=== PATIENT | female | born 1975 | race Hispanic/Latino ===

== ENCOUNTER 2021-08-05 11:31 | Emergency (ER) | payer BC ==
[2021-08-05] MEDS ORDERED: NA CHLORIDE 0.9% 1,000 ML ONE (13:09)
[2021-08-05] MEDS ORDERED: FOLIC ACID 5 MG/ML VIAL ONE (13:10)
[2021-08-05 13:15] LABS: Absolute Lymphocytes (CBC) 1.7 K/uL (0.7-4.9); Lymphocytes % 30.9 % (15.3-44.8); MPV 7.1 fL (7.6-11.3)
[2021-08-05 13:23] LABS: Potassium 3.9 mmol/L (3.5-5.1); Troponin High Sensitivity 3.8 pg/mL (<58.9)
--- NOTE | 2021-08-05 13:43 | RAD REPORT ---
EXAM DESCRIPTION: RAD - Chest Single View - 08/05/2021 1:23 pm CLINICAL HISTORY: r/o pneumonia COMPARISON: CHEST PA AND LAT 2 VIEW dated 05/04/2013; CHEST PA AND LAT 2 VIEW dated 01/05/2012 FINDINGS: Lines: None. Lungs: No evidence of edema or pneumonia. Pleural: No significant pleural effusions or pneumothorax. Cardiac: The heart size is within normal limits. Bones: No acute fractures. Other: IMPRESSION: No acute cardiopulmonary disease.
--- NOTE | 2021-08-05 14:13 | RAD REPORT ---
EXAM DESCRIPTION: CT - Ct Stroke Brain Wo Cont - 08/05/2021 2:01 pm CLINICAL HISTORY: Headache COMPARISON: Head angio dated 08/05/2021 TECHNIQUE: All CT scans are performed using dose optimization technique as appropriate and may inclu de automated exposure control or mA/KV adjustment according to patient size. FINDINGS: No intracranial hemorrhage, hydrocephalus or extra-axial fluid collection.No areas of brai n edema or evidence of midline shift. The paranasal sinuses and mastoids are clear. The calvarium is intact. IMPRESSION: No acute intracranial abnormality. Conveyed to Dr. Gutierrez by Dr. Cameron at 1406 on 08/05/21
--- NOTE | 2021-08-05 14:16 | RAD REPORT ---
EXAM DESCRIPTION: CT - Neck Angio - 08/05/2021 2:01 pm CLINICAL HISTORY: Headache COMPARISON: No comparisons TECHNIQUE: CT angiography of the neck vessels was performed with MIPs. All CT scans are performed using dose optimization technique as appropriate and may include automated exposure control or mA/KV adjustment according to patient size. FINDINGS: A left aortic arch is identified with normal three vessel configuration of the great vesse ls. No significant flow abnormality is seen of the common carotid bilaterally. No significant stenosis is identified involving the cervical segments of both internal carotid arteri es. Normal flow is seen within both vertebral arteries. 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 IMPRESSION: No significant flow abnormality of the neck vessels is identified.
--- NOTE | 2021-08-05 14:18 | RAD REPORT ---
EXAM DESCRIPTION: CT - Head angio - 08/05/2021 2:01 pm CLINICAL HISTORY: Headache COMPARISON: No comparisons TECHNIQUE: CT angiography of the head was performed with MIPs. All CT scans are performed using dose optimization technique as appropriate and may include automated exposure control or mA/KV adjustment according to patient size. FINDINGS: Anterior circulation: No aneurysm or large vessel occlusion. No hemodynamically significant stenosis. No arteriovenous malf ormation identified. Posterior circulation: No aneurysm or large vessel occlusion. No hemodynamically significant stenosis. No arteriovenous malf ormation identified. 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 IMPRESSION: No significant flow abnormality is detected.
[2021-08-05] MEDS ORDERED: ASPIRIN 81 MG CHEWABLE TABLET ONE (15:07)
--- NOTE | 2021-08-05 15:25 | RAD REPORT ---
EXAM DESCRIPTION: MRI - Brain Wo Cont - 08/05/2021 3:12 pm CLINICAL HISTORY: Headache COMPARISON: No comparisons TECHNIQUE: Sagittal T1-weighted images were obtained along with PD/heavily T2-weighted and T2-FLAIR images. Axial DWI and ADC mapping sequences were also obtained along with coronal heavily T2-weighted images were obtained. FINDINGS: No intracranial hemorrhage, mass or acute infarction. There is no edema or shift of midlin e structures. No extra-axial fluid collections. Signal voids are seen as a normal finding in the luis r intracranial vessels. No significant white matter disease. Mucous retention cyst left maxillary sinus. IMPRESSION: No acute intracranial abnormality. Specifically, no evidence of acute infarct.
--- NOTE | 2021-08-05 15:30 | ER ---
Nurse's Notes [facility] Name: Amanda Wen Age: 45 yrs Sex: Female : 1975 Arrival Date: 08/05/2021 Time: 11:32 Bed 18 Private MD: Mike Gayle V Diagnosis: Weakness;Headache-blurry vision Presentation: 08/05 11:39 Chief complaint: Patient states: Headache began Wednesday08/03/21, and stated 'unable to vg1 focus today like Im seeing spots'. Denies NV, stated woke up this morning and upper left arm was tingling that "lasted for about five minutes; i think bc i was sleeping on it'. Coronavirus screen: Vaccine status: Patient reports receiving the 2nd dose of the covid vaccine. Client denies travel out of the [place] in the last 14 days. Ebola Screen: Patient denies exposure to infectious person. Patient denies travel to an Ebola-affected area in the 21 days before illness onset. Initial Sepsis Screen: Does the patient meet any 2 criteria? No. Patient's initial sepsis screen is negative. Does the patient have a suspected source of infection? No. Patient's initial sepsis screen is negative. Risk Assessment: Do you want to hurt yourself or someone else? Patient reports no desire to harm self or others. Onset of symptoms was August 03, 2021. 11:39 Method Of Arrival: Ambulatory vg1 11:39 Acuity: STEPHAN 3 vg1 Triage Assessment: 11:41 Headache History: The patient has had previous headaches and this one is different than vg1 previous episodes, and this one is more severe than previous episodes. General: Appears uncomfortable, Behavior is calm, cooperative. Pain: Complains of pain in head Pain currently is 5 out of 10 on a pain scale. Pain began 2-3 days ago. Also complains of no other associated symptoms. Neuro: Level of Consciousness is awake, alert, obeys commands, Oriented to person, place, time, situation, Post Doctoral Fellow are equal bilaterally Moves all extremities. Gait is steady, Speech is normal, Facial symmetry appears normal. BUILD MASTER: 11:41 LMP N/A - Depo vg1 Historical: - Allergies: 11:41 No Known Allergies; vg1 - Home Meds: 11:41 Methotrexate Sodium Oral [Active]; vg1 - PMHx: 11:41 Rheumatoid arthritis; vg1 - PSHx: 11:41 Gastric bypass; Right knee; Cholecystectomy; Left knee; Tummy Tuck; vg1 - Immunization history:: Client reports receiving the 2nd dose of the Covid vaccine. - Social history:: Smoking status: Patient denies any tobacco usage or history of. - Family history:: not pertinent. Screenin:38 Abuse screen: Denies threats or abuse. Denies injuries from another. Nutritional bowman screening: No deficits noted. Tuberculosis screening: No symptoms or risk factors identified. Fall Risk None identified. Assessment: 13:38 Pain: Complains of pain in headaches. Neuro: Level of Consciousness is awake, alert, bowman obeys commands, Oriented to person, place, time, situation. EENT: Reports blurred vision. Musculoskeletal: Reports weakness in right arm and left arm pain in right arm and left arm. Vital Signs: 11:39 BP 154 / 86; Pulse 70; Resp 16; Temp 99.3(TE); Pulse Ox 100% ; Weight 99.79 kg; Height vg1 5 ft. 6 in. (167.64 cm); Pain 5/10; 13:37 BP 120 / 78; Pulse 63; Resp 17; Pulse Ox 100% on R/A; bowman 11:39 Body Mass Index 35.51 (99.79 kg, 167.64 cm) vg1 Phil Coma Score: 14:30 Eye Response: spontaneous(4). Verbal Response: oriented(5). Motor Response: obeys italia commands(6). Total: 15. NIH Stroke Scale Scores: 13:38 NIHSS Score: 0 bowman ED Course: 11:32 Patient arrived in ED. am2 11:33 Mike Gayle MD is Private Physician. am2 11:41 Triage completed. vg1 11:41 Arm band placed on. vg1 11:46 Ada Pardo, PAPO is Primary Nurse. bowman 12:04 Brian Gutierrez MD is Attending Physician. italia 13:25 XRAY Chest (1 view) In Process Unspecified. EDMS 13:38 Patient has correct armband on for positive identification. Placed in gown. Bed in low bowman position. 13:38 No provider procedures requiring assistance completed. Inserted saline lock: 20 gauge bowman in right antecubital area, using aseptic technique. 14:04 CT Stroke Brain w/o Contrast In Process Unspecified. EDMS 14:04 CT Head Angio In Process Unspecified. EDMS 14:[address] In Process Unspecified. EDMS 15:14 Brain Wo Cont In Process Unspecified. EDMS 15:28 Mike Gayle MD is Referral Physician. italia 15:28 Emir Munoz MD is Referral Physician. italia 16:11 IV discontinued, intact, Pressure dressing applied. bowman Administered Medications: 13:07 Drug: foLIC Acid 1 mg Route: IVPB; Site: right antecubital; bowman 13:07 Drug: NS 0.9% 1000 ml Route: IV; Rate: 1 bolus; Site: right antecubital; bowman 15:07 Drug: Aspirin Chewable Tablet 324 mg Route: PO; bowman Medication: 13:38 VIS not applicable for this client. bowman Outcome: 15:29 Discharge ordered by . italia 16:11 Discharged to home ambulatory. bowman 16:11 Condition: good 16:11 Discharge instructions given to patient, Prescriptions given X 1. 16:12 Patient left the ED. NIH Stroke Scale - NIH Stroke Score Date: 08/05/2021 Time: 13:38 Total Score = 0 1a. Level of Consciousness (LOC) - 0(Alert) 1b. Level of Consciousness (LOC) (Month \\T\\ Age) - 0(Both) 1c. LOC Commands (Open \\T\\ Closes Eyes/Sign Maintenance) - 0(Both) 2. Best Gaze (Lateral Gaze Paresis) - 0(Normal) 3. Visual Field Loss - 0(No visual loss) 4. Facial Palsy - 0(Normal) 5a. Left Arm: Motor (10-second hold) - 0(No drift) 5b. Right Arm: Motor (10-second hold) - 0(No drift) 6a. Left Leg: Motor (5-second hold - always test supine) - 0(No drift) 6b. Right Leg: Motor (5-second hold - always test supine) - 0(No drift) 7. Limb Ataxia (finger/nose \\T\\ heel/bay - test with eyes open) - 0(Absent) 8. Sensory Loss (pinprick arms/legs/face) - 0(Normal) 9. Best Language: Aphasia (description/naming/reading) - 0(No aphasia) 10. Dysarthria (speech clarity - read or repeat words) - 0(Normal) 11. Extinction and Inattention (visual/tactile/auditory/spatial/personal) - 0(No abnormality) Initials: bowman Signatures: Dispatcher [employer] Brian Michael MD MD cha Moreno, Amanda am2 Garcia, Victoria RN RN vg1 Au-StagerAda RN RN bowman
--- NOTE | 2021-08-05 15:30 | EDPHYS ---
Physician Documentation [facility] Name: Amanda Wen Age: 45 yrs Sex: Female : 1975 Arrival Date: 08/05/2021 Time: 11:32 Bed 18 Private MD: Mike Gayle V ED Physician Brian Gutierrez HPI: 08/05 13:37 This 45 yrs old Female presents to ER via Ambulatory with complaints of italia Headache, Arm Pain, Vision Problem - blurry. 13:37 The patient complains of pain to the top of head and forehead. The patient describes italia the headache as aching. 13:38 seeing spots , floaters this am. Onset: The symptoms/episode began/occurred this italia morning. Duration: the symptoms are intermittent. Aggravated by nothing. Alleviated by nothing. Associated signs and symptoms: Pertinent positives: headache. 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 - Social history:: Smoking status: Patient denies any tobacco usage or history of. - Family history:: not pertinent. ROS: 13:38 Constitutional: Negative for fever, chills, and weight loss, Eyes: Negative for injury, italia pain, redness, and discharge, ENT: Negative for injury, pain, and discharge, Neck: Negative for injury, pain, and swelling, Cardiovascular: Negative for chest pain, palpitations, and edema, Respiratory: Negative for shortness of breath, cough, wheezing, and pleuritic chest pain, Abdomen/GI: Negative for abdominal pain, nausea, vomiting, diarrhea, and constipation, Back: Negative for injury and pain, : Negative for injury, bleeding, discharge, and swelling, MS/Extremity: Negative for injury and deformity, Skin: Negative for injury, rash, and discoloration, Neuro: Negative for headache, weakness, numbness, tingling, and seizure, Psych: Negative for depression, anxiety, suicide ideation, homicidal ideation, and hallucinations, Allergy/Immunology: Negative for hives, rash, and allergies, Endocrine: Negative for neck swelling, polydipsia, polyuria, polyphagia, and marked weight changes, Hematologic/Lymphatic: Negative for swollen nodes, abnormal bleeding, and unusual bruising. Exam: 13:13 ECG was reviewed by the Attending Physician. [facility] Vital Signs: 11:39 BP 154 / 86; Pulse 70; Resp 16; Temp 99.3(TE); Pulse Ox 100% ; Weight 99.79 kg; Height vg1 5 ft. 6 in. (167.64 cm); Pain 5/10; 13:37 BP 120 / 78; Pulse 63; Resp 17; Pulse Ox 100% on R/A; bowman 11:39 Body Mass Index 35.51 (99.79 kg, 167.64 cm) vg1 NIH Stroke Scale Scores: 13:38 NIHSS Score: 0 bowman [place] Coma Score: 14:30 Eye Response: spontaneous(4). Verbal Response: oriented(5). Motor Response: obeys [facility] commands(6). Total: 15. MDM: 12:04 Patient medically screened. italia 14:30 Differential diagnosis: cerebral vascular accident, hypertensive headache, italia hypoglycemia, hyponatremia, migraine, neoplasm, sinusitis, vasomotor headache. Data reviewed: vital signs, nurses notes, lab test result(s), EKG, radiologic studies, CT scan, MRI. Data interpreted: secured entrance monitor: rate is 63 beats/min, rhythm is regular, Pulse oximetry: on room air is 100 %. Test interpretation: by ED physician or midlevel provider: ECG, plain radiologic studies. Counseling: I had a detailed discussion with the patient and/or guardian regarding: the historical points, exam findings, and any diagnostic results supporting the discharge/admit diagnosis, lab results, radiology results, the need for outpatient follow up, for definitive care, a family practitioner, a neurologist. 08/05 12:29 Order name: Basic Metabolic Panel; Complete Time: 13:37 bd 08/05 12:29 Order name: CBC with Diff; Complete Time: 13:37 bd 08/05 12:29 Order name: CT Stroke Brain w/o Contrast; Complete Time: 14:27 bd 08/05 12:29 Order name: Troponin HS; Complete Time: 13:37 bd 08/05 12:29 Order name: XRAY Chest (1 view); Complete Time: 13:51 bd 08/05 12:29 Order name: EKG; Complete Time: 12:30 bd 08/05 12:29 Order name: CT Head Angio; Complete Time: 14:27 bd 08/05 12:29 Order name: Neck Angio CT; Complete Time: 14:27 bd 08/05 13:43 Order name: Brain Wo Cont; Complete Time: 15:28 EDMS 08/05 12:29 Order name: Cardiac monitoring; Complete Time: 13:00 bd 08/05 12:29 Order name: EKG - Nurse/Tech; Complete Time: 13:36 bd 08/05 12:29 Order name: IV Saline Lock; Complete Time: 13:00 bd 08/05 12:29 Order name: Labs collected and sent; Complete Time: 13:00 bd 08/05 12:29 Order name: O2 Per Protocol; Complete Time: 13:00 bd 08/05 12:29 Order name: O2 Sat Monitoring; Complete Time: 13:00 bd EC:13 Rate is 61 beats/min. Rhythm is regular. QRS [place] is Normal. PA interval is normal. QRS italia interval is normal. QT interval is normal. No Q waves. T waves are Normal. No ST changes noted. Clinical impression: Normal ECG and No evidence of ischemia. Interpreted by me. Reviewed by me. Administered Medications: 13:07 Drug: foLIC Acid 1 mg Route: IVPB; Site: right antecubital; bowman 13:07 Drug: NS 0.9% 1000 ml Route: IV; Rate: 1 bolus; Site: right antecubital; bowman 15:07 Drug: Aspirin Chewable Tablet 324 mg Route: PO; bowman Disposition Summary: 08/05/21 15:29 Discharge Ordered Location: Home italia Problem: new italia Symptoms: have improved italia Condition: Stable italia Diagnosis - Weakness italia - Headache - blurry vision italia Followup: italia - With: - When: 2 - 3 days - Reason: Recheck today's complaints, Continuance of care, Re-evaluation by your physician Followup: italia - With: - When: 2 - 3 days - Reason: Recheck today's complaints, Re-evaluation by your physician Discharge Instructions: - Discharge Summary Sheet italia - General Headache Without Cause italia - Weakness italia - Weakness, [id number] italia - Aspirin and Your Heart italia - General Headache Without Cause, [id number] italia Forms: - Medication Reconciliation Form italia - Thank You Letter italia - Antibiotic Education italia - Prescription Opioid Use italia Prescriptions: - Folic Acid 1 mg Oral Tablet - take 1 tablet by ORAL route once daily; 30 tablet; Refills: 0, Product italia Selection Permitted NIH Stroke Scale - NIH Stroke Score Date: 08/05/2021 Time: 13:38 Total Score = 0 1a. Level of Consciousness (LOC) - 0(Alert) 1b. Level of Consciousness (LOC) (Month \T\ Age) - 0(Both) 1c. LOC Commands (Open \T\ Closes Eyes/Program Project Manager) - 0(Both) 2. Best Gaze (Lateral Gaze Paresis) - 0(Normal) 3. Visual Field Loss - 0(No visual loss) 4. Facial Palsy - 0(Normal) 5a. Left Arm: Motor (10-second hold) - 0(No drift) 5b. Right Arm: Motor (10-second hold) - 0(No drift) 6a. Left Leg: Motor (5-second hold - always test supine) - 0(No drift) 6b. Right Leg: Motor (5-second hold - always test supine) - 0(No drift) 7. Limb Ataxia (finger/nose \T\ heel/bay - test with eyes open) - 0(Absent) 8. Sensory Loss (pinprick arms/legs/face) - 0(Normal) 9. Best Language: Aphasia (description/naming/reading) - 0(No aphasia) 10. Dysarthria (speech clarity - read or repeat words) - 0(Normal) 11. Extinction and Inattention (visual/tactile/auditory/spatial/personal) - 0(No abnormality) Initials: bowman Signatures: Dispatcher [employer] Enma Land Corey, MD MD cha Garcia, Alyssia, RN RN vg1 Au-Stager, PAPO Caballero RN Corrections: (The following items were deleted from the chart) 13:43 12:31 MR STROKE PROTOCOL+MRI.RAD.ROEL ordered. EDMS EDMS
[2021-08-05 16:44] VITALS: TEMP 99.3; O2SAT 100
[2021-08-05 16:45] VITALS: BP 120/78
--- NOTE | 2021-08-06 07:20 | EKG ---
Test Date: 2021-08-05 Test Time: 13:07:34 Channel Process Plant Operator: JACKSON MEASUREMENT RESULTS: Intervals: Rate: 61 KS: 140 QRSD: 74 QT: 414 QTc: 416 [place]: P: 33 KS: 140 QRS: 1 T: 14 INTERPRETIVE STATEMENTS: Sinus rhythm with premature atrial complexes in a pattern of bigeminy Possible Anterior infarct, age undetermined Abnormal ECG Compared to ECG 11/27/2008 15:46:30 Atrial premature complex(es) now present Myocardial infarct finding now present Sinus arrhythmia no longer present Electronically Signed On 08-06-21 07:17:34 CDT by Lorenzo Myers
== END 2021-08-05 16:12 | disposition home or self-care (01) ==
LOC: ER 11:31
DX: R51.9 Headache, unspecified (principal); R53.1 Weakness; H53.8 Other visual disturbances; Z98.84 Bariatric surgery status
CPT/HCPCS: 93005; 85025; 80048; 36415; 84484; 70496; 70498; 70450; 71045; 70551; Q9967; J7030

== ENCOUNTER 2022-01-20 07:58 | Day surgery (SDC) | payer BC ==
[2022-01-20 08:09] LABS: Specific Gravity 1.023 (1.005-1.030)
[2022-01-20] MEDS ORDERED: Ringers Lactate 1,000 ML IV ONE ×2 (08:37→15:52)
[2022-01-20] MEDS: CEFAZOLIN SODIUM 2 GM/VIAL ONE ×2 (10:53→15:00)
[2022-01-20] MEDS ORDERED: propofoL 200 MG/20 ML VIAL IV ONE (12:20)
[2022-01-20] MEDS ORDERED: LIDOCAINE 2% MPF 5 ML VIAL ONE (12:20)
[2022-01-20] MEDS ORDERED: FENTANYL CITR 100 MCG/2 ML ONE (12:20)
[2022-01-20] MEDS ORDERED: MIDAZOLAM HCL 2 MG/2 ML INJ ONE (12:20)
[2022-01-20] MEDS ORDERED: dexAMETHasone 10 MG/ML VIAL ONE (12:20)
[2022-01-20] MEDS ORDERED: ROCURONIUM 50 MG/5 ML VIAL IV ONE ×2 (12:20→15:45)
[2022-01-20] MEDS ORDERED: ONDANSETRON 4 MG/2 ML VIAL ONE ×2 (12:28→16:36)
[2022-01-20] MEDS ORDERED: BUPIVACAINE 0.25% PF 30 ML VIAL ONE (13:40)
[2022-01-20] MEDS ORDERED: KETOROLAC 30 MG/ML INJ ONE ×2 (15:04→15:32)
[2022-01-20] MEDS ORDERED: GLYCOPYRROLATE 0.2 MG/ML SYR ONE (16:00)
[2022-01-20] MEDS ORDERED: NEOSTIGMINE 1 MG/ML -10 ML VIAL ONE (16:00)
[2022-01-20] MEDS ORDERED: Mastisol Adhesive Liq ONE (16:11)
[2022-01-20] MEDS: HYDROMORPHONE HCL 1 MG/ML INJ ONE ×2 (16:35→16:40)
[2022-01-20] MEDS ORDERED: PROMETHAZINE INJ 25 MG/ML AMP ONE (17:24)
[2022-01-20] MEDS ORDERED: MEPERIDINE HCL 25 MG/ML SYR ONE (17:35)
[2022-01-20 17:53] VITALS: BP 137/77; TEMP 97.1; O2SAT 97
--- NOTE | 2022-01-21 03:26 | OP ---
Date of Procedure: 01/20/2022 Surgeon: Gaby Albert MD Insulation Installer: Jenna Chu. Preoperative Diagnoses: Menorrhagia (abnormal uterine bleeding-O/A), dysmenorrhea, and deep dyspareu dave. Significant urinary urgency. Postoperative Diagnoses: Menorrhagia (abnormal uterine bleeding-O/A), dysmenorrhea, and deep dyspare unia. Significant urinary urgency. Procedures Performed: 1.Diagnostic hysteroscopy, endometrial ablation. 2.Diagnostic laparoscopy, bilateral salpingectomy. 3.Endometriosis excision. Specimens: Endometriosis of the anterior cul-de-sac. Bilateral tubes. Complications: No complications. Drains: No drains. Condition: Stable. Findings: Uterine cavity anteflexed. Cavity length 4 cm with 2.5 power setting at 55 nazario, time of ablation 1 minute 34 seconds. Endometrial ablation was done without any interruptions, adnexal leve l and the endometrial ablation effect. Ovaries unremarkable. Tubes slightly dilated at the end. Anterior cul-de-sac with significant hemos iderin deposits even though, no distinct well-defined endometriotic implants were noted and so the pe ritoneum was excised for possible endometriosis and handed out for permanent pathology. Tubes were r emoved through the port sites and there were no problems. After informed consent was verified, she was taken back to OR, placed in a supine fashion on the tabl e. 2 g of Ancef were given. SCDs were placed and a time-out was done and the case was started. Brief History And Physical: The patient is a 46-year-old with bleeding endometrial sampling that hoda wed an adequate endometrium. Pap was negative for any atypia or malignancy. Discussed the sample wi th the patient and went ahead and consented for an ablation. were discussed with the hillary ent and the patient was consented for this. She has history of significant dysmenorrhea and back cramps, then dyspareunia as well as increased lo wer urinary tract symptoms during the time of her period. Bowels unremarkable. She was consented for an ablation and diagnostic laparoscopy for endometriosis excision and tubal lig ation. Description Of Procedure: She was placed in a dorsal lithotomy position using Esau stirrups. After general endotracheal anesthesia was given, abdomen, vulva, vagina, and perineum were prepped and jose ped in a sterile fashion. Miller was placed to drain the bladder. Speculum placed to expose the cerv ix. Anterior lip grasped with an Allis clamp and the cervix dilated to 16-Yemeni. The cavity was di rectly visualized and measured using the [facility] diagnostic hysteroscope with normal saline medium and 30 -degree lens. Once the cavity was evaluated and measured, the cavity length was set at 4 cm. The de vice was opened and deployed in the usual fashion, the width was 2.5 cm. Once the plug was placed, t clemente cavity integrity test passed without any problems and the entire ablation cycle was conducted with out any interruption for 1 minute 34 seconds. After this device was removed, scope was placed. There was excellent endometrial ablation effect. T he scope was pulled out. Diagnostic VCare introduced into place and fixed in place. Miller was attac hed to a drainage. A 1 cm supraumbilical incision made with a scalpel using the open laparoscopy cut with a k nife and tagged with 0 Vicryl sutures on each side after sharply incising the peritoneal cavity, S re tractors were introduced without any problems. Site of entry was checked and was unremarkable. Uppe r abdominal surface was unremarkable as well. The patient was placed in Trendelenburg and 5 suprapub ic and left lower quadrant ports placed. LigaSure used to take down both tubes. The LigaSure was al so used to excise the entire bladder, peritoneum implants, and all these were handed off for [facility] t pathology. Thorough irrigation and suction were performed. Tubes removed through the suprapubic l eft port. All trocars removed under direct vision. After adequate hemostasis was secured, EBL was m inimal. She was flattened out and gas was desufflated adequately. Sites were closed with the help o f interrupted 4-0 chromic after fascia was closed with the help of the 0 Vicryl sutures tied to each other. Miller and vaginal were removed. Instrument, needle, and sponge counts correct. T clemente patient tolerated the procedure well. Her was debriefed about her procedure, she will hav e a 1-week followup appointment. MERLIN/BEBA Voice ID: [id number] Report ID: [id number]
== END 2022-01-20 18:14 | disposition home or self-care (01) ==
LOC: OR 07:58
PROVIDERS: ATTEND Obstetrics & Gynecology
PROC: 0UT74ZZ Resection of Bilateral Fallopian Tubes, Percutaneous Endoscopic Approach (ICD-10-PCS; 2022-01-20)
PROC: 0UBF4ZZ Excision of Cul-de-sac, Percutaneous Endoscopic Approach (ICD-10-PCS; 2022-01-20)
PROC: 0U5B8ZZ Destruction of Endometrium, Via Natural or Artificial Opening Endoscopic (ICD-10-PCS; principal; 2022-01-20 10:00)
DX: N92.0 Excessive and frequent menstruation with regular cycle (principal); N93.9 Abnormal uterine and vaginal bleeding, unspecified; N94.6 Dysmenorrhea, unspecified; N94.12 Deep dyspareunia; R39.15 Urgency of urination; N80.319 Endometriosis of the anterior cul-de-sac, unspecified depth
CPT/HCPCS: 58563; 58661; 58662; 81025; 88305; J2704; J2710; J2550; J2001; J2250; J3010; J1100; J2175; J1170; J7120 ×2; J2405 ×2; 88302

== ENCOUNTER 2023-02-12 11:13 | Day surgery (SDC) | payer BC ==
[2023-02-10 16:27] LABS: Absolute Lymphocytes (CBC) 1.8 K/uL (0.7-4.9); Hematocrit 32.1 % (36.0-45.0); Lymphocytes % 29.4 % (15.3-44.8); MCV 78.3 fL (80-100); MPV 7.1 fL (7.6-11.3); Platelets 368 thou/uL (152-406); RBC Red Blood Cell Count 4.09 M/uL (3.86-4.86)
[2023-02-10 16:42] LABS: Potassium 3.8 mEq/L (3.5-5.1)
--- NOTE | 2023-02-10 16:48 | RAD REPORT ---
EXAM DESCRIPTION: RAD - Chest Pa And Lat (2 Views) - 02/10/2023 4:26 pm CLINICAL HISTORY: Pre op pending mass removal from abdominal wall Chest pain. COMPARISON: Chest Single View dated 08/05/2021; CHEST PA AND LAT 2 VIEW dated 05/04/2013; CHEST PA AND LAT 2 VIEW dated 01/05/2012 FINDINGS: The lungs are clear. The heart is normal in size. No displaced fractures. IMPRESSION: No acute or concerning finding suspected.
--- NOTE | 2023-02-11 13:21 | EKG ---
Test Date: 2023-02-10 Test Time: 17:06:27 Line Out Man: MISTY MEASUREMENT RESULTS: Intervals: Rate: 61 IA: 142 QRSD: 76 QT: 402 QTc: 404 [place]: P: 57 IA: 142 QRS: 47 T: 45 INTERPRETIVE STATEMENTS: Normal sinus rhythm Normal ECG Compared to ECG 08/05/2021 13:07:34 Atrial premature complex(es) no longer present Myocardial infarct finding no longer present Electronically Signed On 02-11-23 13:18:45 FRENCH FOLDER by Matthew Chawla
[2023-02-12] MEDS ORDERED: Ringers Lactate 1,000 ML IV ONE (11:48)
[2023-02-12] MEDS ORDERED: LIDOCAINE 1% 20 ML MDV ONE (12:27)
[2023-02-12] MEDS ORDERED: FENTANYL CITR 100 MCG/2 ML ONE (12:41)
[2023-02-12] MEDS ORDERED: ONDANSETRON 4 MG/2 ML VIAL ONE (12:41)
[2023-02-12] MEDS ORDERED: MIDAZOLAM HCL 2 MG/2 ML INJ ONE (12:41)
[2023-02-12] MEDS ORDERED: propofoL 200 MG/20 ML VIAL IV ONE (12:41)
[2023-02-12] MEDS ORDERED: LIDOCAINE 2% MPF 5 ML VIAL ONE (12:41)
[2023-02-12] MEDS ORDERED: KETOROLAC 30 MG/ML INJ ONE (12:41)
[2023-02-12] MEDS ORDERED: CEFAZOLIN SODIUM 1 GM/VIAL ONE (12:48)
--- NOTE | 2023-02-12 13:42 | P.BOP ---
Preoperative diagnosis: infected abdominal wall subQ mass Postoperative diagnosis: same Primary procedure: Excisional biopsy of infected abdominal wall subQ mass [id number] Estimated blood loss: <20cc Specimen: culture, mass Findings: infected mass/abscess Anesthesia: General Complications: None Drain(s): Other (02/18 iodoform) Transferred to: Recovery Room Condition: Good
[2023-02-12] MEDS ORDERED: HYDROCODONE/APAP 7.5/325 MG TAB ONE (14:24)
[2023-02-12 15:06] VITALS: BP 121/73; TEMP 97.1; O2SAT 100
--- NOTE | 2023-02-19 17:19 | OP ---
Date of Procedure: 02/12/2023 Surgeon: Morales Small MD Preoperative Diagnosis: Infected abdominal wall subcutaneous mass. Postoperative Diagnosis: Infected abdominal wall subcutaneous mass. Procedure: Excisional biopsy of infected abdominal wall subcutaneous mass, 5 x 3 x 2 cm. Estimated Blood Loss: Less than 20 cc. Specimen: Culture of mass. Finding: Infected mass abscess. Anesthesia: General plus local. Packing: A quarter of an inch iodoform. Indication: This is the case of a female, who came to us with this infected abdominal wall mass with fluctuance consistent with an infected mass with abscess. The benefits, alternatives, and risks of excisional biopsy of infected abdominal wall subcutaneous mass with drainage of an abscess fully expl ained, which include, but not limited to, infection, bleeding, damage to adjacent structures, anesthe deb complication, nonhealing wound, [place], and even . She also understands this may not relieve an y symptoms. She might need more than one surgical intervention. She understood, signed a consent. Description Of Procedure: The patient was brought to the operating room, placed in supine position. Anesthesia was done without complication. Abdominal area was prepped and draped in the usual steril e fashion. A time-out was called. The area of concern was previously marked by me and the patient. An incision was made in a wedged fashion all the way down to subcutaneous tissue and that goes all t he way down to the fascia but does not penetrate the fascia. The mass and the infection were removed . Area was irrigated. This left a cavity about 5 x 3 x 2 cm. Hemostasis was obtained and the area was packed with quarter of an inch iodoform. Patient tolerated the procedure well. Hemostasis was o btained before the packing. Patient sent to Recovery in stable condition. JOSH/BEBA Voice ID: [id number] Report ID: [id number]
--- NOTE | 2023-02-19 17:19 | DS ---
Date of Discharge: 02/12/2023 Diagnosis: Infected abdominal wall subcutaneous mass. Procedure: Excisional biopsy of infected abdominal wall subcutaneous mass. Disposition: Home. Condition: Stable. Activity: As tolerated. No heavy lifting. Plan: Follow up in my office in 1 week. Call for appointment at [phone]. Keep area dry for 24 nga rs, then wet-to-dry dressing daily. JOSH/BEBA Voice ID: [id number] Report ID: [id number]
== END 2023-02-12 14:55 | disposition home or self-care (01) ==
LOC: OR 11:13
PROVIDERS: ATTEND Surgery
PROC: 0WBF0ZZ Excision of Abdominal Wall, Open Approach (ICD-10-PCS; principal; 2023-02-12 13:00)
DX: R22.2 Localized swelling, mass and lump, trunk (principal); L72.0 Epidermal cyst; E66.9 Obesity, unspecified; D64.9 Anemia, unspecified
CPT/HCPCS: 93005; 87070; 85025; 80048; 36415; 87205; 88305; 87075; 87077; 87186; 71046; 22903; J2704; J2001; J2250; J3010; J2405; J7120; J0690